=== PATIENT | male | born 1980 | race Caucasian/White ===

== ENCOUNTER 2019-04-12 13:18 | Emergency (ER) | payer MEDICAID ==
[~2019-04-12] VITALS: Ht 172.7 cm; Wt 225.4 kg
[2019-04-12 13:25] VITALS: BP 180/99
--- NOTE | 2019-04-12 13:41 | NUR ---
BIB . PT AAO X4 REFERRED FROM URGENT CARE FOR HIGH BP 180/123.PT WENT TO URGENT CARE TODAY FOR EYE INFECTION. COURTNEY EYE PAIN & HEADACHE 07/07. PT RUN OUT OF BP MEDICATION, BENAZAPRIL, X 3 WEEKS AGO. PT DENIES DIZZINESS, SOB, PALPITATIONS. PERRLA BRISK 3 MM. FULL CLEAR SPEECH. FACIAL SYMMETRICAL. EQUAL COURTNEY STRENGTH TO UPPER AND LOWER EXTREMITIES. STEADY GAIT. 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 HOB UP. BED SIDE RAILS UP X1. ON LOW BED POSITION, LOCKED. ER MADE AWARE OF PT STATUS.
--- NOTE | 2019-04-12 13:41 | NUR ---
PT AMB TO BED 3
--- NOTE | 2019-04-12 14:09 | NUR ---
DR YIP AT BEDSIDE FOR PT EVALUATION
[2019-04-12 14:59] VITALS: BP 162/85
--- NOTE | 2019-04-12 14:59 | NUR ---
Patient discharged with BP 162/85 DENIES PINEDA AT THIS TIME, MD MADE AWARE. Written and verbal after care instructions given and explained. Patient alert, oriented and verbalized understanding of instructions. Ambulatory with steady gait. All questions addressed prior to discharge. ID band removed. Patient advised to follow up with PMD. Rx of BENAZEPRIL, OPTICROM 4% OPH RIKI, POLYTRIM OPH RIKI given. Patient educated on indication of medication including possible reaction and side effects. Opportunity to ask questions provided and answered.
== END 2019-04-12 14:59 | disposition home or self-care (01) ==
LOC: EDSEX 13:18 → MED 13:18
DX: H10.13 Acute atopic conjunctivitis, bilateral (principal); I10 Essential (primary) hypertension
CPT/HCPCS: 93005; 99283